=== PATIENT | female | born 1995 | race Caucasian/White ===

== ENCOUNTER 2024-12-18 06:15 | Day surgery (SDC) | payer OTHER ==
[2024-12-16 11:03] VITALS: BMI 28.3
[2024-12-18] MEDS ORDERED: MIDAZOLAM HCL 2 MG/2 ML SINGLE DOSE VIAL ONE ×2 (07:38→08:26)
[2024-12-18] MEDS ORDERED: PROPOFOL 20 ML ONE (07:38)
[2024-12-18] MEDS ORDERED: LACTATED RINGERS SOLUTION 1,000 ML IV SCH (09:45)
[2024-12-18 11:23] VITALS: RESP 20
[2024-12-18 13:02] VITALS: BP 115/67; PULSE 85; TEMP 97.9
== END 2024-12-18 12:09 | disposition home or self-care (01) ==
LOC: JASU-SURG 06:15
PROVIDERS: ATTEND Obstetrics & Gynecology
PROC: 0UBC7ZX Excision of Cervix, Via Natural or Artificial Opening, Diagnostic (ICD-10-PCS; principal; 2024-12-18 08:00)
DX: N87.1 Moderate cervical dysplasia (principal); N72 Inflammatory disease of cervix uteri
CPT/HCPCS: 81025; 88305-TC; 88307-TC; 88341-TC; 88342-TC; 94760